=== PATIENT | female | born 2005 | race Asian ===

== ENCOUNTER 2024-06-29 23:01 | Inpatient (IN) ==
[2024-06-30 00:02] LABS: Basophils # (auto) 0.02 K/uL (0.00-0.20); Basophils % (auto) 0.3 %; Eosinophils # (auto) 0.03 K/uL (0.00-0.50); Eosinophils % (auto) 0.5 %; Hematocrit (blood only) 42.4 % (37.0-47.0); Hemoglobin 14.2 g/dl (12.0-16.0); Immature Granulocytes # (auto) 0.01 K/uL (0.01-0.20); Immature Granulocytes % (auto) 0.2 %; Lymphocytes # (auto) 2.11 K/uL (1.20-3.40); Lymphocytes % (auto) 33.3 %; Mean Corpuscular Hemoglobin 29.5 pg (25.0-34.0); Mean Corpuscular Hgb Conc 33.5 g/dL (32.0-36.0); Mean Corpuscular Volume 88.1 fL (80.0-100.0); Mean Platelet Volume 9.5 fL (9.4-12.4); Monocytes # (auto) 0.41 K/uL (0.11-0.59); Monocytes % (auto) 6.5 %; Neutrophils # (auto) 3.75 K/uL (1.40-6.50); Neutrophils % (auto) 59.2 %; Platelet Count 322 K/uL (130-400); RDW Standard Deviation 42.1 fL (36.4-46.3); Red Blood Count 4.81 M/uL (4.20-5.40); White Blood Count 6.33 K/ul (4.8-10.8)
[2024-06-30 00:09] LABS: Appearance Urine Cloudy (Clear); Bacteria Urine Automated 1+ (None Seen); Bilirubin Urine Negative (Negative); Blood Urine 1+ (Negative); Cast Urine Automated 0-2 /lpf (0-2); Color Urine Yellow; Epithelial Cell Urine Auto >20 /hpf (0-2); Glucose Urine UA Negative (Negative); Ketones Urine 3+ (Negative); Leukocyte Esterase Urine Trace (Negative); Nitrite Urine Negative (Negative); Protein Urine 1+ (Negative); Specific Gravity Urine 1.032 (1.000-1.030); Urobilinogen Urine Negative (Negative)
[2024-06-30 00:11] LABS: Amphetamines+Metham, Urine Neg (Neg); Barbiturates, Urine Neg (Neg); Benzodiazepine, Urine Neg (Neg); Cocaine, Urine Neg (Neg); Fentanyl, Urine Neg (Neg); MDMA (Ecstacy), Urine Pos (Neg); Marijuana, Urine Neg (Neg); Methadone, Urine Neg (Neg); Opiate, Urine Neg (Neg); Phencyclidine, Urine Neg (Neg)
[2024-06-30 00:19] LABS: Mucus Urine Present (None Prsent)
[2024-06-30 00:19] LABS: Acetaminophen < 3 ug/ml (10-30); Salicylate < 3.0 mg/dl (3.0-30)
[2024-06-30 00:20] LABS: Albumin Globulin Ratio 1.5 (0.9-2); BUN Creatinine Ratio 17.4 (10-20); Bilirubin,Total 0.4 mg/dl (0.2-1.0); Calcium 9.6 mg/dl (8.6-10.3); Creatinine Clr Calc Pharmacy 102.4 ml/min; Globulin 3.4 gm/dl (2.5-4.0); Potassium 3.5 mmol/L (3.5-5.1); Total Protein 8.4 gm/dl (6.0-8.3)
[2024-06-30 00:35] LABS: Thyroid Stimulating Hormone 1.551 uIu/ml (0.300-4.500)
--- NOTE | 2024-06-30 00:37 | Emergency Department Note ---
Impression & Plan Suicidal ideation case was signed out to Dr. Solis at change of shift ED Provider Note NAME: GARCIA FLAHERTY AGE: 19 SEX: Female INFORMANT: Patient ED PROVIDER(S): Bernice Prakash DO CHIEF COMPLAINT: suicidal ideation PLAN: Disposition: the case was signed out to Dr. Solis at change of shift awaiting referral to 3 S. MEDICAL DECISION MAKING: this is a 19-year-old female patient who has a history of major depression and anxiety who presents to the emergency department after a suicide attempt 2 days ago. Patient states she has felt increasingly suicidal since the end of May and took her usual mental health medications and drank a very large amount of alcohol 2 days ago in an attempt to kill herself. She contacted [facility] who directed her towards [facility] who has made arrangements for inpatient psychiatric admission but sent her here for medical clearance. laboratory studies revealed no leukocytosis or anemia. Urine drug screen was positive for MDMA. Glucose was 127. COVID testing was negative. TSH was normal. Alcohol level was negative. Aspirin and Tylenol levels were negative. Urinalysis revealed 3+ ketones and 1+ blood along with 11-20 white blood cells. The patient denies any urinary symptoms. Patient has a longstanding history of depression and anxiety. She had been following with an online psychiatrist and had recently switched to an in person psychiatrist. Things have been going well back in May but she recently broke off a relationship and felt increasingly depressed. She describes this suicide attempt 2 days ago But admits that she thinks of suicide frequently. She is willing to admit herself voluntarily for inpatient psychiatric care. The case will be signed out to Dr. Solis at change of shift awaiting evaluation from staff on 3 S. once they have discharges. Care/management discussed with: ED psychiatric director case Triage Nursing notes: reviewed and agree with them. Vital Signs: reviewed and tachycardic Additional History obtained from: ED psychiatric director case-from crisis Differential Diagnosis: mood disorder, alcohol abuse, suicide attempt, HPI: 19 year old Female arrives for evaluation of suicide attempt. Patient states she has felt increasingly suicidal since the end of May and took her usual mental health medications and drank a very large amount of alcohol 2 days ago in an attempt to kill herself. She contacted [facility] who directed her towards [facility] who has made arrangements for inpatient psychiatric admission but sent her here for medical clearance. PAST MEDICAL HISTORY: major depression; anxiety; PCOS, SOCIAL HISTORY: nathalia at [employer], [place] MEDICATIONS: See Below ALLERGIES: none VITALS: See Below PHYSICAL EXAMINATION: HEENT: Head - normocephalic and atraumatic. Pupils are equal, round, and reactive to light. Extraocular eye muscles are intact, and sclera are anicteric. Nose - moist nasal mucosa without discharge. Mouth - moist buccal mucosa. Oropharynx is nonerythematous and there is no tonsillar exudate or edema noted. Neck: Supple; no Cervical lymphadenopathy or thyromegaly Heart: Regular rate and rhythm. There is a normal S1 and S2 with no murmurs, clicks, or gallops appreciated. Lungs: Clear to auscultation bilaterally with no wheezes, rales, or rhonchi. Abdomen: Soft, completely nontender, nondistended, with good bowel sounds. There are no palpable pulsatile masses or hepatosplenomegaly. There is no guarding, rigidity, or rebound noted. Extremities: No evidence of cyanosis, clubbing, or edema. There are easily palpable peripheral pulses. Skin: warm and dry with good turgor and no rashes. Psych: Patient has extremely flat affect. She admits to persistent suicidal thoughts. She has been looking up ways to commit suicide where she would not harm others. Emergency Department course: The patient was evaluated in room A-8. A complete history and physical was performed. Laboratory studies were drawn as above. Patient was able to rest comfortably overnight here in the emergency department. She will be evaluated by staff from 3 S. this morning. Past Med/Surg History Problem List (Updated 06/30/24 @ 06:27 by Bernice Prakash DO) Suicidal ideation (Acute) Social History Smoking Status: Never smoker Preferred Language: Persian Feels Safe at Home: Yes Gender Identity: Female Home Meds Home Medications Medication Instructions Recorded Confirmed bupropion HCl 100 mg tablet,12 hr 100 mg PO HS 06/29/24 06/29/24 sustained-release (Wellbutrin SR) escitalopram oxalate 20 mg tablet 20 mg AC 06/29/24 06/29/24 (Lexapro) hydroxyzine pamoate 25 mg capsule 25 mg DIRECTED PRN Anxiety 06/29/24 06/29/24 (Vistaril) Results & Data (ED) Vital Signs Vital Signs - 24 hr 06/29/24 23:07 06/29/24 23:23 06/30/24 01:07 Temperature 36.6 C 37.0 C Temperature Source Temporal Artery Scan Oral Pulse Rate 101 H Pulse Rate [Apical] 91 H 77 Pulse Rhythm [Apical] Regular Pulse Strength [Apical] Normal Respiratory Rate 16 19 18 Respiratory Effort / Characteristics Non-Labored Spontaneous Non-Labored Non-Labored Spontaneous Respiratory Depth Normal Normal Normal Respiratory Pattern Regular Regular Blood Pressure 127/84 Blood Pressure [Left Arm] 121/78 133/81 Blood Pressure Mean 98 Blood Pressure Mean [Left Arm] 92 98 Blood Pressure Position Sitting Pulse Oximetry 97 96 99 Oxygen Delivery Method Room Air Room Air Room Air Sepsis Recent Fever Within 48 Hours No Sepsis New/Unexplained Change in Mental Status N/A Sepsis Action Taken by Nursing No Action Required 06/30/24 03:00 Temperature Temperature Source Pulse Rate Pulse Rate [Apical] 78 Pulse Rhythm [Apical] Pulse Strength [Apical] Respiratory Rate 17 Respiratory Effort / Characteristics Non-Labored Spontaneous Respiratory Depth Normal Respiratory Pattern Regular Blood Pressure Blood Pressure [Left Arm] 122/78 Blood Pressure Mean Blood Pressure Mean [Left Arm] 92 Blood Pressure Position Pulse Oximetry 99 Oxygen Delivery Method Room Air Sepsis Recent Fever Within 48 Hours Sepsis New/Unexplained Change in Mental Status Sepsis Action Taken by Nursing Laboratory Data 06/29/24 23:25 06/29/24 23:25 Lab Results 06/29/24 06/29/24 Range/Units 23:18 23:25 WBC 6.33 (4.8-10.8) K/ul RBC 4.81 (4.20-5.40) M/uL Hgb 14.2 (12.0-16.0) g/dl Hct 42.4 (37.0-47.0) % MCV 88.1 (80.0-100.0) fL MCH 29.5 (25.0-34.0) pg MCHC 33.5 (32.0-36.0) g/dL RDW Std Deviation 42.1 (36.4-46.3) fL RDW Coeff of Anai 13.0 (11.5-14.5) % Plt Count 322 (130-400) K/uL MPV 9.5 (9.4-12.4) fL Immature Gran % (Auto) 0.2 % Neut % (Auto) 59.2 % Lymph % (Auto) 33.3 % [place] % (Auto) 6.5 % Eos % (Auto) 0.5 % Baso % (Auto) 0.3 % Neut # (Auto) 3.75 (1.40-6.50) K/uL Lymph # (Auto) 2.11 (1.20-3.40) K/uL [place] # (Auto) 0.41 (0.11-0.59) K/uL Eos # (Auto) 0.03 (0.00-0.50) K/uL Baso # (Auto) 0.02 (0.00-0.20) K/uL Immature Gran # (Auto) 0.01 (0.01-0.20) K/uL Sodium 139 (136-145) mmol/L Potassium 3.5 (3.5-5.1) mmol/L Chloride 103 (98-107) mmol/L Carbon Dioxide 28 (21-32) mmol/L Anion Gap 8 (3-11) BUN 15 (6-23) mg/dl Creatinine 0.86 (0.6-1.2) mg/dl Est Cr Clr Drug Dosing 102.4 ml/min eGFR 98.51 BUN/Creatinine Ratio 17.4 (10-20) Glucose 127 H (70-99(Fasting)) mg/dl Calcium 9.6 (8.6-10.3) mg/dl Total Bilirubin 0.4 (0.2-1.0) mg/dl AST 16 (13-39) U/L ALT 10 (7-52) U/L Alkaline Phosphatase 65 (34-104) U/L Total Protein 8.4 H (6.0-8.3) gm/dl Albumin 5.0 (3.4-5.0) gm/dl Globulin 3.4 (2.5-4.0) gm/dl Albumin/Globulin Ratio 1.5 (0.9-2) TSH 1.551 (0.300-4.500) uIu/ml HCG, Quant < 1 mIU/ml Urine Color Yellow Urine Appearance Cloudy A (Clear) Urine pH 6.0 (4.5-7.5) Ur Specific Marissa 1.032 H (1.000-1.030) Urine Protein 1+ H (Negative) Urine Glucose (UA) Negative (Negative) Urine Ketones 3+ H (Negative) Urine Blood 1+ H (Negative) Urine Nitrite Negative (Negative) Urine Bilirubin Negative (Negative) Urine Urobilinogen Negative (Negative) Ur Leukocyte Esterase Trace H (Negative) Urine WBC (Auto) 11-20 H (0-5) /hpf Urine RBC (Auto) 3-5 H (0-2) /hpf U Hyaline Cast (Auto) 0-2 (0-2) /lpf U Epithel Cells (Auto) >20 H (0-2) /hpf Urine Bacteria (Auto) 1+ H (None Seen) Urine Mucus Present A (None Prsent) Salicylates < 3.0 L (3.0-30) mg/dl Urine Opiates Screen Neg (Neg) Ur Methadone, Qual Neg (Neg) Urine Fentanyl Screen Neg (Neg) Acetaminophen < 3 L (10-30) ug/ml Urine Barbiturates Neg (Neg) Ur Phencyclidine (PCP) Neg (Neg) U Amphetamin/Meth Scrn Neg (Neg) MDMA (Ecstasy) Screen Pos H (Neg) U Benzodiazepines Scrn Neg (Neg) Ur Cocaine Metabolite Neg (Neg) U Marijuana (THC) Screen Neg (Neg) Ethyl Alcohol mg/dL < 10.0 (<10.0) mg/dl SARS-CoV-2, RNA, NAAT NEGATIVE (NEGATIVE) Discharge Plan Visit Data Chief Complaint: Mental Health Evaluation Stated Complaint: REF BY CRISIS ED Provider: Bernice Prakash Discharge Problem: Suicidal ideation Forms Stand Alone Forms: My [facility], Suicide Prevention Resources Prescriptions Prescriptions: No Action hydroxyzine pamoate [Vistaril] 25 mg Capsule 25 mg DIRECTED PRN (Reason: Anxiety) bupropion HCl [Wellbutrin SR] 100 mg Tablet Sustained-Release 12 Hr 100 mg PO HS escitalopram oxalate [Lexapro] 20 mg Tablet 20 mg AC Referrals Referrals: PCP,NO [Physician] -
--- NOTE | 2024-06-30 07:13 | Emergency Department Note ---
ED Visit Note Patient signed out by Dr. Prakash. Patient history of depression, attempted suicide about 2 days ago with regular medicines and alcohol. Patient having SI at this time. Currently pending placement. Patient accepted to 3 [facility]. at this hospital. 201 signed. Patient taken upstairs
[2024-06-30] MEDS ORDERED: ALUMINUM/MAGNESIUM SUSP 30 ML UDC PO PRN (10:51)
[2024-06-30] MEDS ORDERED: ACETAMINOPHEN 325 MG TAB PO PRN (10:51)
[2024-06-30] MEDS ORDERED: MAGNESIUM HYDROXIDE SUSP 30 ML UDC PO PRN (10:51)
[2024-06-30] MEDS ORDERED: BISMUTH SUBSALICYLATE 262 MG CHEW PO PRN (10:51)
[2024-06-30] MEDS ORDERED: hydrOXYzine HCl 25 MG TAB PO PRN (10:51)
[2024-06-30] MEDS ORDERED: SODIUM CHLORIDE 0.65% NA SOLN 45 ML (OCEAN) PRN (10:51)
[2024-06-30] MEDS ORDERED: buPROPion SR 100 MG TABCR PO SCH ×2 (21:00→22:00)
[2024-07-01] MEDS: buPROPion SR 100 MG TABCR PO SCH (10:07)
[2024-07-01] MEDS: ESCITALOPRAM OXALATE 20 MG TAB PO SCH (10:07)
--- NOTE | 2024-07-01 13:50 | History & Physical ---
Date of Service July 01, 2024 Impression / Recommendations Impression GARCIA FLAHERTY is a 19-year-old [employer] student who currently lives in with roommates, has a history of MDD, GELA, and was admitted on 06/30/24 10:51 on a 201 voluntary commitment for suicidal ideation. Presentation is concerning for cluster B personality symptomatology, MDD in partial remission, GELA. Patient endorses a history of chronic depression with limited improvement with psychotropics and erratic mood states triggered by psychosocial stressors. Complains of chronic suicidality and reports recent alcohol ingestion to cope with distressing anxiety. She presents a history of emotional neglect since childhood. Labs reviewed: CBC, CMP, TSH, beta hCG, blood alcohol unremarkable; UA has trace leukocyte esterase; UDS positive for MDMA likely false positive for Wellbutrin. Medication history reviewed and patient will provide further records. Plan to continue home Lexapro and to hold home Wellbutrin. We will clarify cluster B symptoms. Patient would likely benefit from intensive outpatient program for DBT. Overall, I spent a total of 70 minutes with this case including review of chart records, nursing report, review of lab work, direct evaluation of the patient at bedside, counseling the patient, multidisciplinary team meeting, orders, and documentation in the electronic health record. (1) Suicidal ideation: (2) Cluster B personality disorder: (3) MDD (major depressive disorder), recurrent, in partial remission: (4) Generalized anxiety disorder: (5) Nightmares: (6) Alcohol abuse: Plan 07/01/24: The patient was admitted to the [facility] ([facility] inpatient mental health unit) on q15 min checks (behavioral with suicide precautions) for safety. The patient will participate in group, recreational, and milieu therapies and will be offered additional individual and family sessions as clinically appropriate. -Continue home escitalopram -Hold home Bupropion 100mg SR -Start Abilify 5mg HS -[place] [employer]line PD Screener Inventory Assets Strengths: access to stable housing, financial stability Needs: more positive relationships, motivation Suicide Risk Level Suicide Risk Level: Moderate (q15 min suicide checks) Risk Factors Assessment Male: No : No Do You Have Access To A Gun?: No Health Problems: Yes Mental Health Diagnoses: Yes Substance Use Disorders: No Previous Attempt: Yes Family History of Suicide: No Previous Psychiatric Hospitalization: No Hopelessness: Yes Protective Factors Assessment Sikhism Beliefs: No : No Responsible for Young Children: No Employed: No Stable Relationships: Yes Supportive Family: Yes Good Rapport with Provider: Yes Absence of Any Risk Factors Above: No Psychiatric History Identifying Data GARCIA FLAHERTY is a 19-year-old [employer] student who currently lives in with roommates, has a history of MDD, GELA, and was admitted on 06/30/24 10:51 on a 201 voluntary commitment for suicidal ideation. Chief Complaint "Suicidal thoughts" History of Present Illness Patient reports feeling suicidal since 11 years of age. Reports that her depression has gotten worse recently and she feels more sad and lonely. Recently contacted [employer] crisis and social visited and recommended ER evaluation. She reports on night taking her regular dose of daily psychiatric medications plus multiple shots of vodka. She then passed out and woke up 1 to 2 hours later in the bathroom. She reports sending text to a friend "I love you, jessica". Says that she took the medication alcohol 2 and feelings of distress. Complains of recent sleep onset problems and staying in bed excessively to escape negative feelings. Reports doing well in school. Recent break-up from boyfriend 2 weeks ago. She complains of depressed mood, anhedonia, sleep pattern disturbances, loss of interest, concentration problems, change in appetite, excessive guilt, increased fatigue, decreased need for sleep, increased irritability, increased crying spells, excessive worry, increased anxiety attacks, avoidance symptoms, hallucinations. She denies current SI. Reports recent SI with multiple plans. Complains of feelings of worthlessness and hopelessness. Reports anxiety and depression symptoms triggered by relationship problems. Reports starting a new relationship in May and then her symptoms were gone and they returned after she broke up with her boyfriend. Complains of trouble coping and has considered self-harm in the past. Denies feelings of emptiness. Complains of problems with forming her identity. Denies fear of abandonment. Denies past substance use treatment. Drinks 1-5 drinks every day. In the past 3 months she consumed a max of 5 drinks in [address] or prescription drug use outside of what is prescribed. Denies tobacco use. Denies excessive caffeine ingestion. Reports emotional trauma from childhood. Grew up in [place] and is a single child and a single grandchild. [place] pressure to excel in school. Reports her primary school that she went to was very toxic. Family members would often have verbal disputes each other and put her in the middle. As a child she felt responsible for them fighting. [place] emotional neglect. Denies sexual, physical abuse. Family psychiatric history significant for a grandfather with depression and mother who was seeing psychiatrist for depression and prescribed medication. Denies past psychiatric hospitalization. [place] she was depressed since early teenage years. First got help in 2022 through [facility]. Diagnosed MDD and GELA. Initially started on Lexapro then Wellbutrin and then other medications. Social history: Lives in an apartment with roommates. [employer] student studying [employer]. Has on campus job. Follows up with physician dietetic assistant at [place]: Opal Will. Previous therapy through [facility]. Born in [place]. No siblings. Father and mother were professors. Parents not . Left home at 16 years of age. Single and broke up with her boyfriend 1 to 2 weeks ago. Heterosexual orientation. Not sexually active. No prior marriages or children. Denies legal problems. Not spiritual. No regular exercise. Endorses a healthy diet. Denies access to firearms. Primary care physician through [facility]. Past Psychiatric History Current Psychiatric Diagnosis: MDD, GELA Do You Have Access To A Gun?: No History of Previous Suicide Attempt: Yes Allergies Allergy/AdvReac Type Severity Reaction Status Date / Time No Known Allergies Allergy Unverified 06/30/24 17:46 Home Medications Medication Instructions Recorded Confirmed Type bupropion HCl 100 mg tablet,12 hr 100 mg PO DAILY 06/29/24 06/30/24 History sustained-release (Wellbutrin SR) escitalopram oxalate 20 mg tablet 20 mg DAILY 06/29/24 06/30/24 History (Lexapro) hydroxyzine pamoate 25 mg capsule 25 mg DIRECTED PRN Anxiety 06/29/24 06/29/24 History (Vistaril) Alcohol History Hx of Alcohol Use Over the Past 12 Months: Yes (infrequent use) AUDIT Total Score: 3 Smoking Use Have You Smoked or Used Tobacco Products in the Last 30 Days: No Smoking Status: Never smoker Substance History Hx of Prescription Med Misuse Over the Past 12 Months: No Hx of Over the Counter Med Misuse Over the Past 12 Months: No Hx of Inhalent Misuse Over the Past 12 Months: No Hx of Organic Substance Use Over the Past 12 Months: No Hx of Illegal Substances/Street Drug Use Over Past 12 Months: No Problems as a Result of Past Substance Use: Attempted Suicide Personal History Living Arrangements: Apartment Highest Grade Completed: Some College Highest Grade Completed Comment: currently a sophomore Marital Status: Single Beliefs That Will Affect Care: None Patient History Social History Smoking Status: Never smoker Preferred Language: Amharic Communication Ability: Effective [employer] Superintendent Required: No Beliefs That Will Affect Care: None Feels Safe at Home: Yes Gender Identity: Female Assistive Devices: Glasses Assistive Devices Comment: retainer Physical Exam Mental Examination: Appearance: Well Groomed Eye Contact: Maintains Eye Contact Motor Behavior: Unremarkable Speech: Normal Mood: Calm Affect: Calm, Constricted and Nervous Thought Process: Intact Thought Content: Intact and Racing Hallucinations: None Insight: Poor (to limited) Judgement: Poor (to limited) Vital Signs (Past 24 Hours): Last Vital Signs Temp 36.7 C 07/01/24 06:43 Pulse 84 07/01/24 06:43 Resp 16 07/01/24 06:43 BP 118/71 07/01/24 06:43 Pulse Ox 99 06/30/24 14:06 O2 Del Method Room Air 06/30/24 14:06 Exam Statement: A physical exam was performed in the ED for the purposes of medical clearance. I accept that physical as correct and adequate for the purposes of the inpatient physical exam. Results & Data ([facility]) Current Inpatient Medications Current Inpatient Medications: Current Inpatient Medications Acetaminophen (Acetaminophen 325 Mg Tab) 650 mg PO Q4H PRN PRN Reason: Headache or Minor Fever Stop: 07/30/24 10:50 Al Hydrox/Mg Hydrox/Simethicone (Aluminum/Magnesium Susp 30 Ml Udc) 30 ml PO Q4H PRN PRN Reason: GI Upset Stop: 07/30/24 10:50 Bismuth Subsalicylate (Bismuth Subsalicylate 262 Mg Chew) 2 tab PO Q30M PRN PRN Reason: Loose Stool/Diarrhea Stop: 07/30/24 10:50 Bupropion HCl (Bupropion Sr 100 Mg Tabcr) 100 mg PO DAILY NICO Stop: 07/31/24 08:59 Last Admin: 07/01/24 10:07 Dose: 100 mg Escitalopram Oxalate (Escitalopram Oxalate 20 Mg Tab) 20 mg PO QAM NICO Stop: 07/31/24 08:59 Last Admin: 07/01/24 10:07 Dose: 20 mg Hydroxyzine HCl (Hydroxyzine Hcl 25 Mg Tab) 50 mg PO HSZ PRN PRN Reason: Insomnia Stop: 07/30/24 10:50 Hydroxyzine HCl (Hydroxyzine Hcl 25 Mg Tab) 25 mg PO Q4H PRN PRN Reason: Anxiety Stop: 07/30/24 10:50 Magnesium Hydroxide (Magnesium Hydroxide Susp 30 Ml Udc) 30 ml PO DAILY PRN PRN Reason: Constipation Stop: 07/30/24 10:50 Sodium Chloride (Sodium Chloride 0.65% Na Soln 45 Ml (Real)) 1 - 2 sprays NA PRN PRN PRN Reason: Nasal Dryness/Congestion Stop: 07/30/24 10:50
[2024-07-01] MEDS: ARIPiprazole 5 MG TAB PO SCH (21:08)
[2024-07-01] MEDS: hydrOXYzine HCl 25 MG TAB PO PRN (23:34)
--- NOTE | 2024-07-02 13:42 | Psychiatric Progress Note ---
Date of Service July 02, 2024 Impression / Recommendations Impression GARCIA FLAHERTY is a 19-year-old [employer] student who currently lives in with roommates, has a history of MDD, GELA, and was admitted on 06/30/24 10:51 on a 201 voluntary commitment for suicidal ideation. Presentation is concerning for cluster B personality symptomatology, MDD in partial remission, GELA. Patient endorses a history of chronic depression with limited improvement with psychotropics and erratic mood states triggered by psychosocial stressors. Complains of chronic suicidality and reports recent alcohol ingestion to cope with distressing anxiety. She presents a history of emotional neglect since childhood. A: Today today I reviewed her past medication history with clinical documentation. Patient presents chronology of mood and anxiety symptoms that are related to her situation and not any distinct episodes. She presents complaints of mood lability, dissociations, feelings of emptiness and identity problems, and fear of abandonment concerning for cluster B personality disorder. Given intolerance of Abilify due to night sweats will discontinue. Patient encouraged to intensive outpatient program for better recognition of mood states and improved coping skills. She is agreeable to a trial of propranolol for anxiety; medication side effects and adverse effects discussed with patient and agreeable. Overall, I spent a total of 60 minutes with this case including review of chart records, nursing report, review of lab work, reviewing past medical records, direct evaluation of the patient at bedside, counseling the patient, multidisciplinary team meeting, orders, and documentation in the electronic health record. (1) Borderline personality disorder: (2) MDD (major depressive disorder), recurrent, in partial remission: (3) Generalized anxiety disorder: (4) Alcohol abuse: Plan 07/02/2024: Discontinue Abilify. Start propranolol 10 mg 3 times daily. 07/01/24: The patient was admitted to the [facility] ([facility] mental health unit) on q15 min checks (behavioral with suicide precautions) for safety. The patient will participate in group, recreational, and milieu therapies and will be offered additional individual and family sessions as clinically appropriate. -Continue home escitalopram -Hold home Bupropion 100mg SR -Start Abilify 5mg HS -Mg Borderline PD Screener Inventory Assets Strengths: access to stable housing, financial stability Needs: more positive relationships, motivation Suicide Risk Level Suicide Risk Level: Moderate (q15 min suicide checks) Risk Factors Assessment Male: No : No Do You Have Access To A Gun?: No Health Problems: Yes Mental Health Diagnoses: Yes Substance Use Disorders: No Previous Attempt: Yes Family History of Suicide: No Previous Psychiatric Hospitalization: No Hopelessness: Yes Protective Factors Assessment Pentecostalism Beliefs: No : No Responsible for Young Children: No Employed: No Stable Relationships: Yes Supportive Family: Yes Good Rapport with Provider: Yes Absence of Any Risk Factors Above: No Interval History Identifying Information GARCIA FLAHERTY is a 19-year-old [employer] student who currently lives in with roommates, has a history of MDD, GELA, and was admitted on 06/30/24 10:51 on a 201 voluntary commitment for suicidal ideation. Chief Complaint "Worse mood based on the situation" Review of Systems Sleep Information Total Hours of Sleep: 6 Sleep Comments: Vistaril Meal Information Percent Meal Consumed - Breakfast: 100 Percent Meal Consumed - Lunch: 90 Percent Meal Consumed - Dinner: 100 Subjective Subjective Patient was seen & assessed and interval progress reviewed with treatment team nursing and social work Today reviewed her past documentation by initial psychiatrist. Recently started seeing segundo Will and seen once. Past medications include: Escitalopram 20 mg daily, prazosin 2 mg at bedtime(not effective), mirtazapine 7.5 mg at bedtime(not effective), trazodone 75 mg at bedtime (not effective), abilify 5mg (caused night sweats), bupropion SR 200mg (dec to ineffectiveness) Seen teledoc practioner Eleazar Bains. Dx MDD, recurrent severe w/o psychosis, Generalized anxiety disorder Initial visit 09/16/2022 The patient reports having dreams that are severe someone dying or being in accidents. It is not necessarily family members. They do not wake her up in a distressed state. She can go back to sleep. Complains of going to sleep often but not feeling rested. Reports nightmares have not been a problem recently. Says that her GI symptoms can come and go and are related to how she feels at the moment. Reports panic symptoms 2 times a week and based on how she feels. Reports alcohol use is not regular and that she has many sober months however sometimes she will drink more. Feels that it helps her calm her nerves and lowers her heart rate. When reflecting on why she was feeling okay during her 1 month relationship she reports that the companionship made her happier and she did not feel alone. She denies suicidal ideation. She reports having night sweats from Abilify and started a few hours after taking the medication even at lower doses. She completed the Mg screening instrument for borderline personality disorder: Answered yes to extreme moodiness, feelings of dissociation ("spaces out like entire spirit is gone" and time passes by occurs more frequently when she is feeling low), chronic feelings of emptiness, problems with identity formation, abandonment reaction (recently felt sad and she kept texting ex- boyfriend for attention wanted to make sure that he cared about her). Physical Exam Mental Examination Appearance: Well Groomed Eye Contact: Maintains Eye Contact Motor Behavior: Unremarkable Speech: Normal Mood: Calm Affect: Calm, Constricted and Nervous Thought Process: Intact Thought Content: Intact and Racing Hallucinations: None Insight: Poor (to limited) Judgement: Poor (to limited) Vital Signs (Past 24 Hours) Last Vital Signs Temp 36.9 C 07/02/24 06:38 Pulse 91 H 07/02/24 06:39 Resp 16 07/02/24 06:38 BP 104/69 07/02/24 06:39 Pulse Ox 99 06/30/24 14:06 O2 Del Method Room Air 06/30/24 14:06 Results & Data ([facility]) Current Inpatient Medications Current Inpatient Medications: Current Inpatient Medications Acetaminophen (Acetaminophen 325 Mg Tab) 650 mg PO Q4H PRN PRN Reason: Headache or Minor Fever Stop: 07/30/24 10:50 Al Hydrox/Mg Hydrox/Simethicone (Aluminum/Magnesium Susp 30 Ml Udc) 30 ml PO Q4H PRN PRN Reason: GI Upset Stop: 07/30/24 10:50 Bismuth Subsalicylate (Bismuth Subsalicylate 262 Mg Chew) 2 tab PO Q30M PRN PRN Reason: Loose Stool/Diarrhea Stop: 07/30/24 10:50 Escitalopram Oxalate (Escitalopram Oxalate 20 Mg Tab) 20 mg PO QAM NICO Stop: 07/31/24 08:59 Last Admin: 07/02/24 09:10 Dose: 20 mg Hydroxyzine HCl (Hydroxyzine Hcl 25 Mg Tab) 50 mg PO HSZ PRN PRN Reason: Insomnia Stop: 07/30/24 10:50 Last Admin: 07/01/24 23:34 Dose: 50 mg Hydroxyzine HCl (Hydroxyzine Hcl 25 Mg Tab) 25 mg PO Q4H PRN PRN Reason: Anxiety Stop: 07/30/24 10:50 Magnesium Hydroxide (Magnesium Hydroxide Susp 30 Ml Udc) 30 ml PO DAILY PRN PRN Reason: Constipation Stop: 07/30/24 10:50 Propranolol HCl (Propranolol Hcl 10 Mg Tab) 10 mg PO TID NICO Stop: 08/01/24 13:59 Sodium Chloride (Sodium Chloride 0.65% Na Soln 45 Ml (Isabella)) 1 - 2 sprays NA PRN PRN PRN Reason: Nasal Dryness/Congestion Stop: 07/30/24 10:50 Mental Health & Subst Abuse Tx Psychiatrist [facility] Date Of Appointment With Psychiatric Provider: 07/31/2023 Time of Appointment with Psychiatrist: 1PM Psychiatric Appointment Comment: They will notify you if an earlier appt opens up. Telehealth Therapist Name of Therapist: CEDRICK Director Workforce Management Name of Director Workforce Management: NA Post Discharge Appointments Primary Care Physician Name Of Family Doctor/PCP: [facility]
[2024-07-02] MEDS: PROPRANOLOL HCL 10 MG TAB PO SCH (14:33)
--- NOTE | 2024-07-03 09:49 | Discharge Summary ---
Date of Service July 03, 2024 History of Present Illness Patient reports feeling suicidal since 11 years of age. Reports that her depression has gotten worse recently and she feels more sad and lonely. Recently contacted [facility] crisis and social visited and recommended ER evaluation. She reports on night taking her regular dose of daily psychiatric medications plus multiple shots of vodka. She then passed out and woke up 1 to 2 hours later in the bathroom. She reports sending text to a friend "I love you, jessica". Says that she took the medication alcohol 2 and feelings of distress. Complains of recent sleep onset problems and staying in bed excessively to escape negative feelings. Reports doing well in school. Recent break-up from boyfriend 2 weeks ago. She complains of depressed mood, anhedonia, sleep pattern disturbances, loss of interest, concentration problems, change in appetite, excessive guilt, increased fatigue, decreased need for sleep, increased irritability, increased crying spells, excessive worry, increased anxiety attacks, avoidance symptoms, hallucinations. She denies current SI. Reports recent SI with multiple plans. Complains of feelings of worthlessness and hopelessness. Reports anxiety and depression symptoms triggered by relationship problems. Reports starting a new relationship in May and then her symptoms were gone and they returned after she broke up with her boyfriend. Complains of trouble coping and has considered self-harm in the past. Denies feelings of emptiness. Complains of problems with forming her identity. Denies fear of abandonment. Denies past substance use treatment. Drinks 1-5 drinks every day. In the past 3 months she consumed a max of 5 drinks in [address] or prescription drug use outside of what is prescribed. Denies tobacco use. Denies excessive caffeine ingestion. Reports emotional trauma from childhood. Grew up in [facility] and is a single child and a single grandchild. [place] pressure to excel in school. Reports her primary school that she went to was very toxic. Family members would often have verbal disputes each other and put her in the middle. As a child she felt responsible for them fighting. [place] emotional neglect. Denies sexual, physical abuse. Family psychiatric history significant for a grandfather with depression and mother who was seeing psychiatrist for depression and prescribed medication. Denies past psychiatric hospitalization. [place] she was depressed since early teenage years. First got help in 2022 through . Diagnosed MDD and GELA. Initially started on Lexapro then Wellbutrin and then other medications. Social history: Lives in an apartment with roommates. 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 Follows up with physician first assistant at [place]: Opal Will. Previous therapy through [facility]. Born in [facility]. No siblings. Father and mother were professors. Parents not . Left home at 16 years of age. Single and broke up with her boyfriend 1 to 2 weeks ago. Heterosexual orientation. Not sexually active. No prior marriages or children. Denies legal problems. Not spiritual. No regular exercise. Endorses a healthy diet. Denies access to firearms. Primary care physician through [facility]. Physical Exam Mental Examination Appearance: Well Groomed Eye Contact: Maintains Eye Contact Motor Behavior: Unremarkable Speech: Normal Mood: Calm Affect: Calm and Constricted Thought Process: Intact Thought Content: Intact and Racing Hallucinations: None Insight: Poor (to limited) Judgement: Poor (to limited) Vital Signs (Past 24 Hours) Last Vital Signs Temp 36.9 C 07/03/24 06:35 Pulse 78 07/03/24 06:36 Resp 16 07/03/24 06:35 BP 120/84 07/03/24 06:36 Pulse Ox 99 06/30/24 14:06 O2 Del Method Room Air 06/30/24 14:06 Principal Diagnosis Borderline Personality Disorder Psychiatric Data See daily stay summary. In short, safety was maintained and the patient was cooperative with care. Medication changes included d/c home Bupropion, starting Propranolol 10mg TID PRN and they tolerated this well. A family session was refused and safety plan was completed prior to discharge. Patient endorses a history of chronic depression with limited improvement with psychotropics and erratic mood states triggered by psychosocial stressors. Concern for cluster B personality symptomatology and was encouraged to complete an intensive outpatient program for DBT. Her initial suicidal ideation resolved quickly and she remained future oriented through her hospitalization. Referral sent to [facility]. Day of Discharge Assessment Today the patient voices readiness for discharge. They note improvement in mood and deny thoughts to harm self or others. Thoughts remain organized and they are improved from admission. There is no evidence of psychosis. They agree to take mediations as prescribed and keep follow-up appointments. They are stable for discharge to outpatient level of care. Transition of Care Transition Of Care Record: was reviewed with the patient Advance Directives Advance Directives Information Provided: Yes Advance Directives: No Mental Health Advance Directive: No Advance Directives on File: No Living Will: No Power of Optometry Assistant: No Advance Directives Reason:: Declines as Mental Health Visit. Risk Factors Assessment Male: No : No Do You Have Access To A Gun?: No Health Problems: Yes Mental Health Diagnoses: Yes Substance Use Disorders: No Previous Attempt: Yes Family History of Suicide: No Previous Psychiatric Hospitalization: No Hopelessness: Yes Protective Factors Assessment Mandaen Beliefs: No : No Responsible for Young Children: No Employed: No Stable Relationships: Yes Supportive Family: Yes Good Rapport with Provider: Yes Absence of Any Risk Factors Above: No Discharge Data Lab Results 06/29/24 06/29/24 23:18 23:25 WBC 6.33 RBC 4.81 Hgb 14.2 Hct 42.4 MCV 88.1 MCH 29.5 MCHC 33.5 RDW Std Deviation 42.1 RDW Coeff of Anai 13.0 Plt Count 322 MPV 9.5 Immature Gran % (Auto) 0.2 Neut % (Auto) 59.2 Lymph % (Auto) 33.3 [place] % (Auto) 6.5 Eos % (Auto) 0.5 Baso % (Auto) 0.3 Neut # (Auto) 3.75 Lymph # (Auto) 2.11 [place] # (Auto) 0.41 Eos # (Auto) 0.03 Baso # (Auto) 0.02 Immature Gran # (Auto) 0.01 Sodium 139 Potassium 3.5 Chloride 103 Carbon Dioxide 28 Anion Gap 8 BUN 15 Creatinine 0.86 Est Cr Clr Drug Dosing 102.4 eGFR 98.51 BUN/Creatinine Ratio 17.4 Glucose 127 H Calcium 9.6 Total Bilirubin 0.4 AST 16 ALT 10 Alkaline Phosphatase 65 Total Protein 8.4 H Albumin 5.0 Globulin 3.4 Albumin/Globulin Ratio 1.5 TSH 1.551 HCG, Quant < 1 Urine Color Yellow Urine Appearance Cloudy A Urine pH 6.0 Ur Specific Fraser 1.032 H Urine Protein 1+ H Urine Glucose (UA) Negative Urine Ketones 3+ H Urine Blood 1+ H Urine Nitrite Negative Urine Bilirubin Negative Urine Urobilinogen Negative Ur Leukocyte Esterase Trace H Urine WBC (Auto) 11-20 H Urine RBC (Auto) 3-5 H U Hyaline Cast (Auto) 0-2 U Epithel Cells (Auto) >20 H Urine Bacteria (Auto) 1+ H Urine Mucus Present A Salicylates < 3.0 L Urine Opiates Screen Neg Ur Methadone, Qual Neg Urine Fentanyl Screen Neg Acetaminophen < 3 L Urine Barbiturates Neg Ur Phencyclidine (PCP) Neg U Amphetamin/Meth Scrn Neg MDMA (Ecstasy) Screen Pos H U Benzodiazepines Scrn Neg Ur Cocaine Metabolite Neg U Marijuana (THC) Screen Neg Ethyl Alcohol mg/dL < 10.0 SARS-CoV-2, RNA, NAAT NEGATIVE Hospital Course (1) Borderline personality disorder: (2) MDD (major depressive disorder), recurrent, in partial remission: (3) Generalized anxiety disorder: (4) Alcohol abuse: Plan 07/02/2024: Discontinue Abilify. Start propranolol 10 mg 3 times daily. 07/01/24: The patient was admitted to the [facility] ([facility]) on q15 min checks (behavioral with suicide precautions) for safety. The patient will participate in group, recreational, and milieu therapies and will be offered additional individual and family sessions as clinically appropriate. -Continue home escitalopram -Hold home Bupropion 100mg SR -Start Abilify 5mg HS -Turn[place] Borderline PD Screener Mental Health & Subst Abuse Tx Psychiatrist Name of Psychiatrist: [facility] Date Of Appointment With Psychiatric Provider: 07/31/2023 Time of Appointment with Psychiatrist: 1PM Psychiatric Appointment Comment: They will notify you if an earlier appt opens up. Telehealth Therapist Name of Therapist: [facility] (Virtual) Therapist's Date of Therapist Appointment: 07/03/24 Time of Therapist Appointment: 4:30PM Therapy Appointment Comment: Intake via video call. Link sent to your email Advertising Traffic Manager Name of Advertising Traffic Manager: NA Post Discharge Appointments Primary Care Physician Name Of Family Doctor/PCP: [facility] Other #1: Name of Aftercare Appointment: [facility] post hospitalization meeting Phone Number of Aftercare Appointment: [phone] Date of Aftercare Appointment: 07/04/24 Time of Aftercare Appointment: 11AM Aftercare Appointment Comment: pending Discharge Plan Discharge Items Patient Disposition: Home - Self-Care Reason For Visit: UNSPECIFIED DEPRESSIVE DISORDER Discharge Diagnosis: (1) Borderline personality disorder: (2) MDD (major depressive disorder), recurrent, in partial remission: (3) Generalized anxiety disorder: (4) Alcohol abuse: Condition on Discharge: Fair Activity: Resume your previous activity Non-emergency contact: Primary Care Provider and Psychiatrist Call non-emergency contact if: you have any medication questions and your symptoms worsen Follow-up/Referrals: [facility] [Primary Care Provider] - Diet: Regular Addtl Attending Provider Instructions: -Continue Lexapro 20mg daily -Continue Propranolol 10mg three times a day NEEDED for anxiety -Engage in intensive outpatient program for structured therapy to better regulate emotions Pending Studies at Discharge: No Stand-Alone Forms: [employer] (formerly [employer]), Smoking Cessation Medications and DC Order Prescriptions: New propranolol 10 mg Tablet 10 mg PO TID PRN (Reason: anxiety) Qty: 90 1RF Continued hydroxyzine pamoate [Vistaril] 25 mg Capsule 25 mg DIRECTED PRN (Reason: Anxiety) escitalopram oxalate [Lexapro] 20 mg Tablet 20 mg DAILY Discontinued bupropion HCl [Wellbutrin SR] 100 mg Tablet Sustained-Release 12 Hr 100 mg PO DAILY Discharge Orders: Discharge Order (Routine); Ordered 07/03/24 Ordered By: Bradly Garcia Admission Data Admit Date/Time: 06/30/24 10:51 Attending Provider: Bradly Garcia Admit Provider: Bradly Garcia Primary Care Provider: [facility] Other Interventions: Discharge Summary Assessment (RN) Last Done: 07/03/24 10:17 PSY Interdisciplinary Discharge Planning Last Done: 07/03/24 10:30 C[place] [address] D/C day mgmt 30 min or < Patient Type Established History Expanded Problem Focused Exam Expanded Problem Focused Medical Decision Making Moderate Complexity Diagnoses Borderline personality disorder F60.3 MDD (major depressive disorder), recurrent, in partial remission F33.41 Generalized anxiety disorder F41.1 Alcohol abuse F10.10
[2024-07-03] MEDS ORDERED: DESTROY THIS MEDICATION ONE (11:54)
[2024-07-04 17:48] LABS: MDA negative; MDEA negative; MDMA (Ecstasy) Urine, Confirm negative
== END 2024-07-03 12:20 | disposition home or self-care (01) | DRG 883 ==
LOC: ED 23:01 → 3S 06-30 10:51 → ED 06-30 13:26